=== PATIENT | male | born 1995 | race Two or more races ===

== ENCOUNTER 2021-03-12 09:28 | Emergency (ER) | payer OTHER, SELFPAY ==
--- NOTE | ~2021-03-12 | CT_ITS ---
EXAMINATION: CT ABDOMEN AND PELVIS WITHOUT CONTRAST CLINICAL INFORMATION: Left-sided lower abdominal pain COMPARISON: None TECHNIQUE: Multidetector volumetric imaging was performed from the superior aspect of the liver through the pubic symphysis. Sagittal and coronal reformatted images were obtained on the technologist's workstation. This CT examination was performed using dose optimization techniques as appropriate, variously including the following: *Automated exposure control *Adjustment of mA and/or kV according to patient size (this includes techniques or standardized protocols for targeted exams where dose is matched to indication/reason for exam; i.e. extremities or head) *Use of iterative reconstruction technique DLP: 373 mGy-cm FINDINGS: LUNG BASES: The visualized lung bases are unremarkable. LIVER, GALLBLADDER, AND BILIARY TREE: The liver is normal in size, shape, and attenuation. No focal hepatic lesion or biliary ductal dilatation is present. The gallbladder is unremarkable with no evidence of radiopaque gallstones, gallbladder wall thickening, or obvious pericholecystic inflammatory changes. PANCREAS: Unremarkable. SPLEEN: Unremarkable. ADRENAL GLANDS: Unremarkable. KIDNEYS AND URETERS: The kidneys are normal in size, shape, and attenuation. No hydronephrosis, hydroureter, or calculi seen. No perinephric stranding. BLADDER: Unremarkable. GASTROINTESTINAL TRACT: There is large amount of stool seen throughout the colon without distention. The small bowel loops are normal caliber. Appendix is not visualized. No inflammatory process seen in the abdomen. ABDOMINAL WALL: No significant hernia is appreciated. LYMPH NODES: Normal. VASCULAR: Unremarkable. PELVIC VISCERA: Unremarkable. OSSEOUS STRUCTURES: Unremarkable. CT/CT abdomen pelvis wo con IMPRESSION: Large amount of stool seen throughout the entire colon consistent with significant constipation. There is no obstruction seen. No radiopaque urolith or hydroureteronephrosis.
--- NOTE | 2021-03-12 09:50 | ED_ITS ---
HPI - Abdominal Pain General Chief Complaint: Abdominal Pain Stated Complaint: abdominal pain Time Seen by Provider: 03/12/21 09:50 Source: patient Mode of arrival: ambulatory Limitations: language barrier History of Present Illness HPI narrative: 25 y/o male with liver problem as a teenager who presents with abdominal pain and constipation for the last 5 days. He last had a BM 5 days ago after he took Milk of Magnesia. He reports ongoing abdominal pain since, mostly on the left side and lower parts of his abdomen. He is nauseated but has not vomited. No fever or chills. No blood in his stool. He had to strain and it was difficult to go. Related Data Previous Rx's Medication Instructions Recorded lactulose [Kristalose] 20 g PO BID #30 ea 03/12/21 Allergies Allergy/AdvReac Type Severity Reaction Status Date / Time Unable to Assess Allergy Unverified 03/12/21 10:29 Review of Systems Review of Systems Constitutional: No Fever, No Chills ENT/Mouth: No sore throat, No Rhinorrhea, No Swallowing Difficulty Cardiovascular: No Chest Pain, No SOB, No Orthopnea, No Edema Respiratory: No Cough, No Sputum, No Wheezing, No dyspnea Gastrointestinal: + Nausea, No Vomiting, No Diarrhea, + abdominal Pain Genitourinary: No Dysuria, No Urinary Frequency, No Hematuria Musculoskeletal: No joint pain, No Myalgias Skin: No Skin Lesions, No rash Neuro: No Weakness, No Numbness, No Dizziness, No Headache Heme/Lymph: No Bruising, No Lymphadenopathy Physical Exam Vital Signs: Vital Signs: Last Vital Signs Pulse 61 03/12/21 11:10 Resp 16 03/12/21 11:10 BP 127/87 03/12/21 11:10 Pulse Ox 99 03/12/21 11:10 Body Mass Index 21.1 Appearance: Alert. Oriented X3. No acute distress. Eyes: Pupils equal, round and reactive to light. ENT: Pharynx normal. Neck: Normal inspection. Neck supple. CVS: Normal heart rate and rhythm. Pulses normal. Respiratory: No respiratory distress. Breath sounds normal. Abdomen: Soft with left sided tenderness to deep palpation, no rebound or guarding. +BS x4. DEE normal sphincter tone, no stool in rectal vault Skin: Skin warm and dry. Normal skin color. Normal skin turgor. No rashes. Extremities: No lower extremity edema. Neuro: Oriented X 3. No motor deficit. No sensory deficit. Course Course Course Narrative: 25 y/o male presenting with left sided abdominal pain and constipation x5 days. Abdominal exam reveals some diffuse tenderness. Will get lab workup and CT scan for further evaluation. Reevaluation(s) Reevaluation #1: CT scan showing large volume stool and constipation. Labs are u nremarkable. Given 1L IVF and Mg++ citrate. Stable for discharge with laxatives and stool softeners. Encouraged GI follow up. Patient agreeable with plan. MDM - Abdominal Pain Lab Data Result diagrams: 03/12/21 11:19 03/12/21 11:19 Labs: Lab Results 03/12/21 03/12/21 03/12/21 Range/Units 11:19 11:19 11:19 WBC 4.9 (4.8-10.8) X10*3/uL RBC 4.83 (4.60-5.80) X10*6/uL Hgb 15.4 (14.0-18.0) g/dl Hct 44.4 (42-52) % MCV 91.9 (80-98) fL MCH 31.9 (27.0-33.0) pg MCHC 34.7 (31.0-36.0) g/dl RDW 11.7 (11.0-16.0) % Plt Count 193 (160-400) X10*3/uL MPV 9.1 L (9.4-12.4) fL Immature Gran % (Auto) 0.2 (0.0-0.4) % Neut % (Auto) 67.0 (45-73) % Lymph % (Auto) 25.7 (20-40) % [place] % (Auto) 6.7 (2-11) % Eos % (Auto) 0.2 (0-4) % Baso % (Auto) 0.2 (0-2) % Lymph # (Auto) 1.3 (1.2-4.9) X10*3/uL [place] # (Auto) 0.3 (0.1-1.2) X10*3/uL Eos # (Auto) 0.0 (0.0-0.4) X10*3/uL Baso # (Auto) 0.0 (0.0-0.2) X10*3/uL Abs Immat Gran (auto) 0.01 (0.00-0.03) X10*3/uL Absolute Neuts (auto) 3.3 (2.0-8.3) X10*3/uL Absolute Nucleated RBC 0.000 (0.0-0.012) X10*3/uL Nucleated RBC % (auto) 0.0 (0.0-0.2) /100WBC Hold Blue Top SEE NOTE Sodium 138 (135-145) mmol/L Potassium 3.8 (3.3-5.1) mmol/L Chloride 105 (96-108) mmol/L Carbon Dioxide 27 (22-29) mmol/L Anion Gap 10 L (12-20) BUN 14 (9-16) mg/dL Creatinine 0.95 (0.5-1.4) mg/dL Estim Creat Clear Calc 109.2 Estimated GFR > 60 Random Glucose 99 (60-115) mg/dL Calcium 9.3 (8.4-10.2) mg/dL Magnesium 2.0 (1.6-2.6) mg/dL Total Bilirubin 1.4 H (0.0-1.0) mg/dL Direct Bilirubin 0.4 (0.0-0.5) mg/dL AST 20 (5-37) U/L ALT 13 (0-40) U/L Alkaline Phosphatase 69 (39-117) U/L Total Protein 6.6 (6.5-8.0) g/dL Albumin 4.1 (3.5-5.0) g/dL Urine Color Urine Appearance Urine pH (5.0-8.0) Ur Specific [place] (1.005-1.025) Urine Protein (NEG-TRACE) MG/DL Urine Glucose (UA) (NEG) MG/DL Urine Ketones (NEG) MG/DL Urine Blood (NEG) Urine Nitrite (NEG) Ur Leukocyte Esterase (NEG) 03/12/21 Range/Units 11:19 WBC (4.8-10.8) X10*3/uL RBC (4.60-5.80) X10*6/uL Hgb (14.0-18.0) g/dl Hct (42-52) % MCV (80-98) fL MCH (27.0-33.0) pg MCHC (31.0-36.0) g/dl RDW (11.0-16.0) % Plt Count (160-400) X10*3/uL MPV (9.4-12.4) fL Immature Gran % (Auto) (0.0-0.4) % Neut % (Auto) (45-73) % Lymph % (Auto) (20-40) % [place] % (Auto) (2-11) % Eos % (Auto) (0-4) % Baso % (Auto) (0-2) % Lymph # (Auto) (1.2-4.9) X10*3/uL [place] # (Auto) (0.1-1.2) X10*3/uL Eos # (Auto) (0.0-0.4) X10*3/uL Baso # (Auto) (0.0-0.2) X10*3/uL Abs Immat Gran (auto) (0.00-0.03) X10*3/uL Absolute Neuts (auto) (2.0-8.3) X10*3/uL Absolute Nucleated RBC (0.0-0.012) X10*3/uL Nucleated RBC % (auto) (0.0-0.2) /100WBC Hold Blue Top Sodium (135-145) mmol/L Potassium (3.3-5.1) mmol/L Chloride (96-108) mmol/L Carbon Dioxide (22-29) mmol/L Anion Gap (12-20) BUN (9-16) mg/dL Creatinine (0.5-1.4) mg/dL Estim Creat Clear Calc Estimated GFR Random Glucose (60-115) mg/dL Calcium (8.4-10.2) mg/dL Magnesium (1.6-2.6) mg/dL Total Bilirubin (0.0-1.0) mg/dL Direct Bilirubin (0.0-0.5) mg/dL AST (5-37) U/L ALT (0-40) U/L Alkaline Phosphatase (39-117) U/L Total Protein (6.5-8.0) g/dL Albumin (3.5-5.0) g/dL Urine Color YELLOW Urine Appearance CLEAR Urine pH 6.0 (5.0-8.0) Ur Specific [place] 1.020 (1.005-1.025) Urine Protein NEG (NEG-TRACE) MG/DL Urine Glucose (UA) NEG (NEG) MG/DL Urine Ketones NEG (NEG) MG/DL Urine Blood NEG (NEG) Urine Nitrite NEG (NEG) Ur Leukocyte Esterase NEG (NEG) Critical Care Time Critical Care Time Critical Care Time: No Discharge Plan Discharge Clinical Impression: Constipation Qualifiers: Constipation type: unspecified constipation type Qualified Code(s): K59.00 - Constipation, unspecified Patient Disposition: Home, Self-Care Instructions: Constipation (ED), High Fiber Diet (ED) Additional Instructions: Your CT scan showed constipation. Your lab workup was unremarkable. Increase your water intake. Recommend daily Miralax and Colace stool softeners. Take as prescribed. Continue milk of magnesia as needed. Follow up with GI provider. Follow up with your regular doctor. If you have worsening pain or develop vomiting or any other concerning symptoms come back to the ER for further evaluation. Prescriptions: New lactulose [Kristalose] 10 gram packet 20 g PO BID Qty: 30 RF: 0 Referrals: Familia Ramsay MD [Physician] - 1 week (severe constipation) Stand Alone Forms: Work/School Release Print Language: Urdu [facility] Social History Social History Patient Tobacco Use Status: Never used Tobacco Advance Directives: Yes Advance Directives Information Provided: No Advance Directives on File: No
[2021-03-12 10:27] VITALS: BP 126/58; PULSE 58; RESP 18; O2SAT 100; BMI 21.1
[2021-03-12 11:10] VITALS: BP 127/87; PULSE 61; RESP 16; O2SAT 99
[2021-03-12] MEDS: 0.9 % Sodium Chloride 1,000 ML 999 ML IVCONT (11:21)
[2021-03-12] MEDS: Magnesium Citrate 300 ML SOLUTION PO (11:25)
[2021-03-12 11:27] LABS: MANUAL DIFF FLAG NO
[2021-03-12 11:29] LABS: Basophils Percent Auto 0.2 % (0-2); Eosinophils Percent Auto 0.2 % (0-4); Hematocrit 44.4 % (42-52); Hemoglobin 15.4 g/dl (14.0-18.0); Imm Gran Abs Auto 0.01 X10*3/uL (0.00-0.03); Imm Gran Pct Auto 0.2 % (0.0-0.4); Lymphocytes Absolute Auto 1.3 X10*3/uL (1.2-4.9); Lymphocytes Percent Auto 25.7 % (20-40); Mean Corpuscular HGB Conc 34.7 g/dl (31.0-36.0); Mean Corpuscular Hemoglobin 31.9 pg (27.0-33.0); Mean Corpuscular Volume 91.9 fL (80-98); Mean Platelet Volume 9.1 fL (9.4-12.4); Monocytes Absolute Auto 0.3 X10*3/uL (0.1-1.2); Monocytes Percent Auto 6.7 % (2-11); Neutrophils Absolute Auto 3.3 X10*3/uL (2.0-8.3); Platelet Count 193 X10*3/uL (160-400); Red Blood Count 4.83 X10*6/uL (4.60-5.80); Red Cell Distribution Width 11.7 % (11.0-16.0); White Blood Count 4.9 X10*3/uL (4.8-10.8)
[2021-03-12 11:30] LABS: Glucose Urine UA NEG (NEG); Leukocyte Esterase Urine NEG (NEG); Nitrite Urine NEG (NEG); Urine Blood NEG (NEG); Urine Ketones NEG (NEG); Urine Protein NEG (NEG-TRACE)
[2021-03-12 11:31] LABS: Appearance Urine CLEAR; Color Urine YELLOW
[2021-03-12 11:53] LABS: Alanine Aminotransferase 13 U/L (0-40); Albumin Level 4.1 g/dL (3.5-5.0); Alkaline Phosphatase 69 U/L (39-117); Anion Gap 10 (12-20); Aspartate Amino Transferase 20 U/L (5-37); Bilirubin Direct 0.4 mg/dL (0.0-0.5); Bilirubin Total 1.4 mg/dL (0.0-1.0); Blood Urea Nitrogen 14 mg/dL (9-16); Calcium 9.3 mg/dL (8.4-10.2); Carbon Dioxide 27 mmol/L (22-29); Chloride 105 mmol/L (96-108); Creatinine Clr Calc Pharmacy 109.2; Estimated Glomerular Filt Rate > 60; Glucose Random 99 mg/dL (60-115); Potassium 3.8 mmol/L (3.3-5.1); Sodium 138 mmol/L (135-145); Total Protein 6.6 g/dL (6.5-8.0)
== END 2021-03-12 13:12 | disposition home or self-care (01) ==
PROVIDERS: Physician Assistant; Emergency Provider Emergency Medicine
DX: K59.00 Constipation, unspecified (principal); R10.9 Unspecified abdominal pain
CPT/HCPCS: 36415; 74176; 80048; 80076; 81003; 83735; 85025; 96360; 99284

== ENCOUNTER 2022-04-06 20:54 | Emergency (ER) | payer MEDICAID, SELFPAY ==
--- NOTE | ~2022-04-06 | CT_ITS ---
EXAMINATION: CT ANGIOGRAM BRAIN, HEAD CLINICAL INFORMATION: Suspicion of aneurysm contrast head CT. COMPARISON: Head CT from today TECHNIQUE: Test bolus sequences followed by intravenous administration of 75 mL of Omnipaque 350 intravenous contrast. Helical imaging was performed in the axial plane from the skull base to the vertex. Delayed postcontrast imaging of the head was also performed. The data was processed at the computer engineering technologist workstation for generation of MIP sequences. Three-dimensional volume rendered reformatted images were also generated at an offline 3-D workstation. The degree of stenosis determined by NASCET criteria. This CT examination was performed using dose optimization techniques as appropriate, variously including the following: *Automated exposure control *Adjustment of mA and/or kV according to patient size (this includes techniques or standardized protocols for targeted exams where dose is matched to indication/reason for exam; i.e. extremities or head) *Use of iterative reconstruction technique DLP: 1708 mGy-cm FINDINGS: CT HEAD: There is no evidence of acute intracranial hemorrhage or territorial infarction. No abnormal mass effect or midline shift is seen. Salazar to white matter differentiation is well preserved. No extra-axial fluid collections are identified. No suspicious leptomeningeal or parenchymal enhancement on the post-contrast images. No hydrocephalus. No significant volume loss. There is no abnormal attenuation within the brain parenchyma. Posttraumatic appearance of the right orbit. This is fully described on the recent prior CT. Layering fluid in the right maxillary sinus.. The mastoid air cells and visualized portions of the paranasal sinuses are otherwise well aerated. CTA HEAD: There is a right-sided aneurysm at the origin of the right middle cerebral artery. This measures 0.5 x 0.6 x 0.7 cm. Of note, the A1 segment of the right anterior cerebral artery is absent. The intradural portion of the vertebral arteries are of normal caliber. The basilar, superior cerebellar, and posterior communicating arteries are patent. The posterior, middle, and anterior cerebral arteries are otherwise of normal caliber without evidence of significant luminal irregularity. CT/CT angio head IMPRESSION: 0.7 cm aneurysm at the origin of the right middle cerebral artery. Posttraumatic appearance of the right orbit.
--- NOTE | ~2022-04-06 | CT_ITS ---
EXAMINATION: NONCONTRAST HEAD CT NONCONTRAST MAXILLOFACIAL CT INDICATION INFORMATION: Head trauma and right orbital trauma. Softball to face. COMPARISON: None TECHNIQUE: Separate noncontrast CT examinations of the head and maxillofacial bones were performed. Coronal and sagittal images were created for each examination at the technologist workstation. This CT examination was performed using dose optimization techniques as appropriate, variously including the following: *Automated exposure control *Adjustment of mA and/or kV according to patient size (this includes techniques or standardized protocols for targeted exams where dose is matched to indication/reason for exam; i.e. extremities or head) *Use of iterative reconstruction technique DLP: 914 mGy-cm FINDINGS: HEAD: Rounded hyperdense focus at the expected junction of the right supraclinoid ICA and right M1 MCA segment projecting superiorly suspicious for an intracranial aneurysm that measures approximately 0.8 x 0.7 x 0.7 cm in size, see adams images. No intra or extra-axial hemorrhage, fluid collection, or other mass. No midline shift or herniation. Basal cisterns are patent. The means-white matter differentiation is maintained. No territorial encephalomalacia. No hydrocephalus. No significant volume loss. There is no abnormal attenuation within the brain parenchyma. No acute soft tissue abnormality. No calvarial fracture. The mastoid air cells are well aerated. MAXILLOFACIAL: Comminuted fracture of the orbital floor with up to 0.9 cm depression of orbital floor fragments and herniation of a small amount of extraconal fat through the bony defect. The inferior rectus muscle also bulges inferiorly into the defect. Question impingement/entrapment of the inferior rectus muscle at the posterior fracture margin on coronal image 13. There is gas from the maxillary sinus extending into the extraconal fat along the inferior lateral aspect of the orbit. Medial, lateral and superior orbital aguirre appear intact. No other acute facial bone fracture. Small air-fluid level in the right maxillary antrum compatible small volume hemosinus. Mild mucosal thickening of right ethmoid air cells. The orbits demonstrate a normal appearance bilaterally. The globes are intact. No evidence of retrobulbar hemorrhage. Right periorbital soft tissue swelling. CT/CT facial bones wo con IMPRESSION: 1. Unexpected findin.8 x 0.7 x 0.7 cm rounded hyperdense focus in the region of the distal supraclinoid right ICA at the junction with the proximal M1 segment projecting superiorly suspicious for an intracranial aneurysm. Recommend CTA of the head for further evaluation. 2. No intracranial hemorrhage or calvarial fracture identified. 3. Comminuted depressed right orbital floor fracture with up to 0.9 cm depression of inferior orbital floor bone fragments and possible impingement/entrapment of the posterior right inferior rectus muscle. 4. Intact appearance of the globe and retro-orbital structures.
[2022-04-06 21:46] VITALS: PULSE 99; RESP 19; TEMP 37.1; O2SAT 99; BMI 24.0
--- NOTE | 2022-04-06 21:58 | ED_ITS ---
HPI - Eye Problem General Chief complaint: Eye Problems Stated complaint: hit in eye with softball Time Seen by Provider: 04/06/22 21:55 Source: patient Mode of arrival: ambulatory Limitations: language barrier History of Present Illness HPI Narrative: 26-year-old male presents with right-sided eye pain and swelling after being hit in the face with a softball today. Patient reports pressure to the right eye, had a bloody nose, has a minor headache, some dizziness, and states that his vision is a little bit blurry. He does not report loss of balance, nausea, vomiting, fevers or chills chief complaint: eye pain and eye injury Onset (ago): hour(s) (Within the hour of arrival) Onset description: sudden Duration: constant Location: right eye Eye Symptoms: redness and pain Place: street/outdoors Mechanism: direct trauma Severity: severe Severity scale (1-10): 8 If Pain, Quality: aching and throbbing Associated symptoms: headache and other (Dizziness) Treatments Prior to Arrival: none Related Data Patient tetanus UTD: No Previous Rx's Medication Instructions Recorded lactulose 10 gram oral packet 20 g PO BID #30 ea 03/12/21 (Kristalose) Allergies Allergy/AdvReac Type Severity Reaction Status Date / Time No Known Allergies Allergy Verified 04/06/22 22:39 Review of Systems Review of Systems: Constitutional: No Fever, No Chills ENT/Mouth: No Ear Pain, No Hoarseness, No sore throat Eyes: Positive right eye Eye Pain, positive right eye lid Swelling, positive right eye Redness, No Foreign Body Cardiovascular: No Chest Pain, No SOB Respiratory: No Cough, No Dyspnea Gastrointestinal: No Nausea, No Vomiting, No Diarrhea, No abdominal Pain Genitourinary: No Dysuria, No Hematuria Musculoskeletal: positive right orbital pain, No Myalgias, No Joint Swelling Skin: Positive right upper eyelid laceration, positive right lower eyelid abrasion, No rash Neuro: No Weakness, No Numbness, No Paresthesias, No Loss of Consciousness, No Dizziness, No Headache Psych: No Anxiety/Panic, No Depression Heme/Lymph: no easy bruising, no Lymphadenopathy Endocrine: No Polyuria, No Polydipsia Yes all other systems are reviewed and are negative [facility] Past Medical History Attestation statement: The following information was validated with the patient. Source: old records reviewed Social History Social History Patient Tobacco Use Status: Never used Tobacco Advance Directives: No Advance Directives Information Provided: No Physical Exam Vital Signs: Vital Signs: Last Vital Signs Temp 98.7 F 04/06/22 21:46 Pulse 89 04/07/22 00:58 Resp 16 04/07/22 01:00 BP 153/87 H 04/07/22 00:58 Pulse Ox 99 04/07/22 00:58 O2 Del Method 04/07/22 00:58 BMI result Body Mass Index 24.0 Appearance: Alert. Oriented X3. Moderate distress. Eyes: Pupils equal, round and reactive to light. Subconjunctival hematoma noted to the right eye from the 6 o'clock to 11 o'clock position. No chemosis or globe rupture noted. No hyphema noted. EOMI. Swelling noted to the upper and lower lids with 0.5 cm laceration to the upper lid, and 0.5 cm abrasion to the lower lid. ENT: Pharynx normal. Tympanic membranes bilaterally intact. No mastoid tenderness noted. Neck: Normal inspection. Neck supple. No vertebral tenderness noted. No vertebral step-offs. CVS: Normal heart rate and rhythm. Pulses normal. Respiratory: No respiratory distress. Breath sounds normal. Abdomen: Soft and nontender. Skin: Skin warm and dry. Normal skin color. Normal skin turgor. Extremities: No lower extremity edema. Gait well-balanced well coordinated. Neuro: No motor deficit. No sensory deficit. Cranial nerves 2-12 intact. Course Course Course Narrative: 26-year-old male presents with right orbital injury after being hit in the face with a line drive softball. Patient does not report any loss of vision but has significant pain around the eye. He also reports some dizziness, however has had intermittent dizziness over the past few months. He has had a lab work up by his primary care physician for this dizziness with negative findings. Eye exam indicates subconjunctival hematoma to the right eye from the 6 o'clock to 11 o'clock position. Has pain on extraocular movement, to the right lateral rectus and inferior rectus muscles. No nystagmus noted. Laceration prepped and draped in sterile fashion. Irrigated with copious amounts of saline. Please refer to procedure note for full details. Patient tolerated procedure well. 23:20 CT scan has some significant findings. Comminuted depressed right orbital floor fracture with 0.9 cm depression of the inferior orbital floor bone fragments and possible impingement entrapment of the posterior right inferior rectus muscle. Also noted an unexpected finding of a 0.8 x 0.7 x 0.7 cm rounded hypodense focus in the region of the distal supraclinoid right ICA at the [place] ction the proximal M1 segment projecting superiorly suspicious for intracranial aneurysm. Will order CTA at this time. I did discuss all of these findings with the patient in detail utilizing scientific software developer. scientific software developer has been utilized for all correspondence with this patient. Patient did verbalize understanding of and agrees with plan. He does understand that he may need to be transferred to a level 1 trauma center. 00:45 CTA indicates aneurysm measuring 0.5 x 0.6 x 0.7 cm of the right middle cerebral artery. 00:59 discussion with [facility] trauma, patient accepted by Dr. Pandey. MDM - Eye Problem MDM Narrative Medical decision making narrative: Orbital fracture Differential Diagnosis Differential diagnosis: Likely corneal abrasion, hyphema, subconjunctival hemorrhage and ruptured globe Medical Records Attestation: I reviewed the patient's medical records. Lab Data Attestation: I reviewed the patient's lab results. Result diagrams: 04/06/22 23:37 04/06/22 23:37 Labs: Lab Results 04/06/22 04/06/22 04/06/22 Range/Units 23:37 23:37 23:37 WBC 10.0 (4.8-10.8) X10*3/uL RBC 5.07 (4.60-5.80) X10*6/uL Hgb 16.0 (14.0-18.0) g/dl Hct 46.5 (42.0-52.0) % MCV 91.7 (80.0-98.0) fL MCH 31.6 (27.0-33.0) pg MCHC 34.4 (31.0-36.0) g/dl RDW 12.7 (11.0-16.0) % Plt Count 243 (160-400) X10*3/uL MPV 8.7 L (9.4-12.4) fL Immature Gran % (Auto) 0.2 (0.0-0.4) % Neut % (Auto) 76.3 H (45-73) % Lymph % (Auto) 16.8 L (20-40) % [place] % (Auto) 6.3 (2-11) % Eos % (Auto) 0.2 (0-4) % Baso % (Auto) 0.2 (0-2) % Lymph # (Auto) 1.7 (1.2-4.9) X10*3/uL [place] # (Auto) 0.6 (0.1-1.2) X10*3/uL Eos # (Auto) 0.0 (0.0-0.4) X10*3/uL Baso # (Auto) 0.0 (0.0-0.2) X10*3/uL Abs Immat Gran (auto) 0.02 (0.00-0.03) X10*3/uL Absolute Neuts (auto) 7.6 (2.0-8.3) x10*3/uL Absolute Nucleated RBC 0.000 (0.0-0.012) X10*3/uL Nucleated RBC % (auto) 0.0 (0.0-0.2) /100WBC Sodium 138 (135-145) mmol/L Potassium 3.8 (3.3-5.1) mmol/L Chloride 102 (96-108) mmol/L Carbon Dioxide 23 (22-29) mmol/L Anion Gap 17 (12-20) BUN 11 (9-16) mg/dL Creatinine 1.00 (0.5-1.4) mg/dL Estim Creat Clear Calc 108.3 Estimated GFR > 60 Random Glucose 139 H D (60-115) mg/dL Calcium 10.0 D (8.4-10.2) mg/dL COVID-19 (ALEX) Negative (Negative) COVID-19 Clin Com See Note Imaging Data CT scan - head: Attestation: I personally reviewed and interpreted this imaging study as follows: Radiologist's impression: FINDINGS: HEAD: Rounded hyperdense focus at the expected junction of the right supraclinoid ICA and right M1 MCA segment projecting superiorly suspicious for an intracranial aneurysm that measures approximately 0.8 x 0.7 x 0.7 cm in size, see adams images. No intra or extra-axial hemorrhage, fluid collection, or other mass. No midline shift or herniation. Basal cisterns are patent. The salazar-white matter differentiation is maintained. No territorial encephalomalacia. No hydrocephalus. No significant volume loss. There is no abnormal attenuation within the brain parenchyma. No acute soft tissue abnormality. No calvarial fracture. The mastoid air cells are well aerated. MAXILLOFACIAL: Comminuted fracture of the orbital floor with up to 0.9 cm depression of orbital floor fragments and herniation of a small amount of extraconal fat through the bony defect. The inferior rectus muscle also bulges inferiorly into the defect. Question impingement/entrapment of the inferior rectus muscle at the posterior fracture margin on coronal image 13. There is gas from the maxillary sinus extending into the extraconal fat along the inferior lateral aspect of the orbit. Medial, lateral and superior orbital aguirre appear intact. No other acute facial bone fracture. Small air-fluid level in the right maxillary antrum compatible small volume hemosinus. Mild mucosal thickening of right ethmoid air cells. The orbits demonstrate a normal appearance bilaterally. The globes are intact. No evidence of retrobulbar hemorrhage. Right periorbital soft tissue swelling. CT/CT facial bones wo con IMPRESSION: ? 1. Unexpected findin.8 x 0.7 x 0.7 cm rounded hyperdense focus in the region of the distal supraclinoid right ICA at the junction with the proximal M1 segment projecting superiorly suspicious for an intracranial aneurysm. Recommend CTA of the head for further evaluation. 2. No intracranial hemorrhage or calvarial fracture identified. 3. Comminuted depressed right orbital floor fracture with up to 0.9 cm depression of inferior orbital floor bone fragments and possible impingement/entrapment of the posterior right inferior rectus muscle. 4. Intact appearance of the globe and retro-orbital structures. CTA head: Attestation: I personally reviewed and interpreted this imaging study as follows: Radiologist's impression: FINDINGS: CT HEAD: There is no evidence of acute intracranial hemorrhage or territorial infarction. No abnormal mass effect or midline shift is seen. Salazar to white matter differentiation is well preserved. No extra-axial fluid collections are identified. No suspicious leptomeningeal or parenchymal enhancement on the post-contrast images. No hydrocephalus. No significant volume loss. There is no abnormal attenuation within the brain parenchyma. Posttraumatic appearance of the right orbit. This is fully described on the recent prior CT. Layering fluid in the right maxillary sinus.. The mastoid air cells and visualized portions of the paranasal sinuses are otherwise well aerated. CTA HEAD: There is a right-sided aneurysm at the origin of the right middle cerebral artery. This measures 0.5 x 0.6 x 0.7 cm. Of note, the A1 segment of the right anterior cerebral artery is absent. The intradural portion of the vertebral arteries are of normal caliber. The basilar, superior cerebellar, and posterior communicating arteries are patent. The posterior, middle, and anterior cerebral arteries are otherwise of normal caliber without evidence of significant luminal irregularity. ? CT/CT angio head IMPRESSION: 0.7 cm aneurysm at the origin of the right middle cerebral artery.? ? Posttraumatic appearance of the right orbit. Procedures Laceration Laceration 1: Site: face Side (If applicable): right Size (cm): 0.5 Description: linear Depth: simple, single layer Local Anesthetic: lidocaine 1% Amount of anesthesia used (mL): 2 Pre-repair: wound explored, irrigated extensively and deep structures intact Skin layer closed with: nylon Size (cm): 6-0 Number of sutures: 3 Technique: simple, interrupted Discharge Plan Discharge Clinical Impression: Orbital floor (blow-out) closed fracture, Aneurysm of middle cerebral artery, Facial laceration Patient Disposition: er Acute Care Hospital Transfer Details: [facility], Dr. Pandey Prescriptions: No Action lactulose [Kristalose] 10 gram packet 20 g PO BID Qty: 30 0RF Interventions: Acute Care Transfer Worksheet (ED) Last Done: 04/07/22 01:56 Discharge Date/Time: 04/07/22 01:45
[2022-04-06] MEDS: Lidocaine HCl 1 % MPF 5 ML VIAL SUBCUT (22:41)
[2022-04-06] MEDS: Diphth,Pertus(ACell),Tet Adult 0.5 ML SYRINGE IM (22:41)
[2022-04-06 23:43] LABS: MANUAL DIFF FLAG NO
[2022-04-06 23:44] LABS: Basophils Percent Auto 0.2 % (0-2); Eosinophils Percent Auto 0.2 % (0-4); Hematocrit 46.5 % (42.0-52.0); Imm Gran Abs Auto 0.02 X10*3/uL (0.00-0.03); Imm Gran Pct Auto 0.2 % (0.0-0.4); Lymphocytes Absolute Auto 1.7 X10*3/uL (1.2-4.9); Lymphocytes Percent Auto 16.8 % (20-40); Mean Corpuscular HGB Conc 34.4 g/dl (31.0-36.0); Mean Corpuscular Hemoglobin 31.6 pg (27.0-33.0); Mean Corpuscular Volume 91.7 fL (80.0-98.0); Mean Platelet Volume 8.7 fL (9.4-12.4); Monocytes Absolute Auto 0.6 X10*3/uL (0.1-1.2); Monocytes Percent Auto 6.3 % (2-11); Neutrophils Absolute Auto 7.6 x10*3/uL (2.0-8.3); Neutrophils Percent Auto 76.3 % (45-73); Platelet Count 243 X10*3/uL (160-400); Red Blood Count 5.07 X10*6/uL (4.60-5.80); Red Cell Distribution Width 12.7 % (11.0-16.0)
[2022-04-06] MEDS: iohexoL 350 MG/ML 100 ML INFUS..BTL 75 ML IV (23:52)
[2022-04-06 23:59] LABS: COVID-19 Test Negative (Negative)
[2022-04-07 00:02] LABS: Anion Gap 17 (12-20); Blood Urea Nitrogen 11 mg/dL (9-16); Carbon Dioxide 23 mmol/L (22-29); Chloride 102 mmol/L (96-108); Creatinine Clr Calc Pharmacy 108.3; Estimated Glomerular Filt Rate > 60; Glucose Random 139 mg/dL (60-115); Potassium 3.8 mmol/L (3.3-5.1); Sodium 138 mmol/L (135-145)
[2022-04-07] MEDS: 0.9 % Sodium Chloride 1,000 ML 999 ML IVCONT (00:21)
[2022-04-07] MEDS: ondansetron HCL 4 MG/2 ML VIAL IVPUSH (00:21)
[2022-04-07] MEDS: LORazepam 2 MG/ML VIAL 0.5 MG IVPUSH (00:21)
[2022-04-07 00:22] VITALS: RESP 16
[2022-04-07] MEDS: Morphine Sulfate 4 MG/ML CARTRIDGE IVPUSH ×2 (00:22→01:00)
[2022-04-07 00:58] VITALS: BP 153/87; PULSE 89; RESP 16; O2SAT 99
[2022-04-07 01:00] VITALS: RESP 16
--- NOTE | 2022-04-07 01:34 | PC.NURSE ---
This US/PCT called [facility] transfer center at 0037 per DANYEL Wills. Received a call back at 0055, accepted patient to the trauma ER. Called [facility] at 0102 for a bls transfer per Elma. [facility] arrived at 0129.
--- NOTE | 2022-04-07 01:55 | PC.NURSE ---
This RN attempted to call [facility] twice for nurse to nurse report. Phone rang continuously with no response for both calls. EMS informed that nurse to nurse could not be completed.
== END 2022-04-07 01:45 | disposition short-term general hospital (02) ==
PROVIDERS: Nurse Practitioner Family; Emergency Provider Emergency Medicine
DX: S02.31XA Fracture of orbital floor, right side, initial encounter for closed fracture (principal); S01.81XA Laceration without foreign body of other part of head, initial encounter; S05.01XA Injury of conjunctiva and corneal abrasion without foreign body, right eye, initial encounter; R42 Dizziness and giddiness; R51.9 Headache, unspecified; I67.1 Cerebral aneurysm, nonruptured; Y29.XXXA Contact with blunt object, undetermined intent, initial encounter; Y93.64 Activity, baseball; Y92.320 Baseball field as the place of occurrence of the external cause; Y99.9 Unspecified external cause status; Z20.822 Contact with and (suspected) exposure to COVID-19; Z79.899 Other long term (current) drug therapy
CPT/HCPCS: 12011; 70450; 70486; 70496; 80048; 85025; 87635; 90471; 90715; 96361; 96374; 96375; 96376; 99285; J2060; J2270; J2405; Q9967

== ENCOUNTER 2022-04-17 11:01 | Emergency (ER) | payer MEDICAID, SELFPAY ==
[2022-04-17 11:18] VITALS: BP 120/61; PULSE 64; RESP 18; TEMP 37; O2SAT 98; BMI 22.8
--- NOTE | 2022-04-17 12:10 | ED_ITS ---
HPI - General Adult General Chief complaint: Skin/Abscess/Foreign Body Stated complaint: stiches removal Time Seen by Provider: 04/17/22 12:08 Source: patient Mode of arrival: ambulatory History of Present Illness HPI narrative: 26-year-old male with a past medical history of orbital blowout fracture, aneurysm of the middle cerebral artery, and facial laceration s/p being hit in the face with a softball on 04/06/2022 presenting to the ED for suture removal. Patient was evaluated in our ED after initial incident and transferred via level 1 trauma to [facility], admits was discharged on Thursday. Is scheduled for outpatient surgery at the end of May for his aneurysm. Otherwise denies any complaints at present. Denies headache, vision change/loss, drainage from area, fever Onset (ago): day(s) Related Data Previous Rx's Medication Instructions Recorded lactulose 10 gram oral packet 20 g PO BID #30 ea 03/12/21 (Kristalose) Allergies Allergy/AdvReac Type Severity Reaction Status Date / Time No Known Allergies Allergy Verified 04/06/22 22:39 Review of Systems Review of Systems: Constitutional: No Fever, No Chills, No Fatigue, No Malaise ENT/Mouth: No Ear Pain, No Nasal Congestion, No sore throat, No Rhinorrhea, No Swallowing Difficulty Eyes: No Eye Pain, No Swelling, No Redness, No Vision Changes Cardiovascular: No Chest Pain, No SOB, No Edema, No Palpitations Respiratory: No Cough, No Sputum, No Dyspnea Gastrointestinal: No Nausea, No Vomiting, No Diarrhea, No Constipation, No Abdominal pain Genitourinary: No Dysuria, No Urinary Frequency, No Hematuria Musculoskeletal: No joint pain, No Myalgias, No Joint Swelling Skin: + Skin Lesions, No rash Neuro: No Weakness, No Numbness, No Paresthesias, No Loss of Consciousness, No Dizziness, No Headache Yes all other systems are reviewed and are negative [facility] Past Medical History Attestation statement: The following information was validated with the patient. Social History Social History Patient Tobacco Use Status: Never used Tobacco Advance Directives: No Advance Directives Information Provided: No Physical Exam ED Vital Signs: Vital Signs - 24 hr 04/17/22 11:18 Temperature 98.6 F Pulse Rate 64 Respiratory Rate 18 Blood Pressure 120/61 Pulse Oximetry 98 Oxygen Delivery Method Room Air BMI result Body Mass Index 22.8 Const General: cooperative, healthy appearing and no acute distress Orientation/consciousness: patient oriented x3 Limitations: no limitations HENMT Head: Yes normal to inspection and Yes atraumatic Ears: hearing grossly normal bilaterally General nose exam: Normal external nose present Face and sinus: Yes normal facial exam Eyes Other: + right subconjunctival hemorrhage (old) General: appearance normal, both eyes and all related structures EOM: EOMs intact bilaterally and no movement deficit Direct Ophthalmoscopy: normal light reflex and no photophobia Neck Neck: Yes normal visual inspection and Yes no meningeal signs Resp Effort & Inspection: normal respiratory effort and no respiratory distress Cardio Rate: regular rate Heart sounds: S1 normal heart sound present and S2 normal heart sound present Skin Other: + healing laceration to forehead with 3 sutures intact Rashes: no rashes Neuro General: patient oriented x3, tone normal and no meningeal signs Gait exam (Neuro): Normal gait present Extrem General: Yes normal to inspection Procedures Procedure Narrative Procedure Narrative: Suture removal 3 sutures removed from forehead without complication Medical Decision Making MDM Narrative Medical decision making narrative: 26-year-old male with a past medical history of orbital blowout fracture, aneurysm of the middle cerebral artery, and facial laceration s/p being hit in the face with a softball on 04/06/2022 presenting to the ED for suture removal. On exam vital signs stable, NAD/nontoxic appearing, will remove sutures. Appear uncomplicated Medical Records Medical records reviewed: Yes I reviewed the patient's medical records. Lab Data Lab results reviewed: Yes I reviewed the patient's lab results. Discharge Plan Discharge Clinical Impression: Visit for suture removal Patient Disposition: Home, Self-Care Instructions: Stitches Removal (ED) Additional Instructions: Your sutures were removed today in the ED. Keep area clean. Avoid the sun as will make scarring worse. You should apply anti scar cream which is [id number] at [facility] or [facility]. Please follow-up with your doctor If symptoms persist or worsen return to the emergency department Le quitaron las suturas hoy en el servicio de urgencias. Mantenga el ?cordell limpia. Evite el maye ya que empeorar? las cicatrices. Debe aplicar gary crema anticicatrices que se vende sin receta en [facility] o [facility]. Por favor, silvia un seguimiento con harrison m?dico. Si los s?ntomas persisten o empeoran, regrese al servicio de urgencias. Prescriptions: No [facility] lactulose [Kristalose] 10 gram packet 20 g PO BID Qty: 30 0RF Referrals: Aladdin,[facility] [Primary Care Provider] - Interventions: ED Discharge Assessment Last Done: 04/17/22 12:36 Discharge Date/Time: 04/17/22 12:36 Print Language: Pashto
== END 2022-04-17 12:36 | disposition home or self-care (01) ==
PROVIDERS: Emergency Provider Emergency Medicine
DX: Z48.02 Encounter for removal of sutures (principal)
CPT/HCPCS: 99283

== ENCOUNTER 2022-09-17 08:59 | Outpatient (REF) | payer MEDICAID, SELFPAY ==
--- NOTE | ~2022-09-17 | US_ITS ---
EXAMINATION: US ABDOMEN COMPLETE CLINICAL INFORMATION: Abdominal pain. COMPARISON: CT abdomen and pelvis 03/12/2021. TECHNIQUE: Real-time imaging of the abdominal viscera. FINDINGS: PANCREAS: Normal. ABDOMINAL AORTA: The proximal, mid, and distal segments are normal in caliber. INFERIOR VENA CAVA: Visualized portions are normal. LIVER: Normal. The liver is normal in size. The liver contour is normal. Parenchymal echogenicity is normal. No focal hepatic lesion. There is no intrahepatic biliary duct dilatation seen. GALLBLADDER: Normal. The gallbladder is physiologically distended without evidence of stones, sludge, polyps, wall thickening or pericholecystic fluid. COMMON BILE DUCT: Normal in caliber measuring 0.1 cm in diameter. RIGHT KIDNEY: Normal. No hydronephrosis. No renal calculi or focal parenchymal lesions. The kidney measures 9.5 cm in maximum dimension. LEFT KIDNEY: Normal. No hydronephrosis. No renal calculi or focal parenchymal lesions. The kidney measures 9.8 cm in maximum dimension. SPLEEN: Normal. The spleen measures 11.5 cm in maximum dimension. FREE FLUID: None. US/US abdomen complete IMPRESSION: Unremarkable abdominal ultrasound.
== END 2022-09-17 09:00 | disposition home or self-care (01) ==
LOC: HO.HMGCX 08:59
PROVIDERS: PCP Registered Nurse; Visit Provider Registered Nurse
DX: R10.84 Generalized abdominal pain (principal)
CPT/HCPCS: 76700

== ENCOUNTER 2025-02-16 12:02 | Outpatient (REF) | payer MEDICAID, SELFPAY ==
--- NOTE | ~2025-02-16 | XR_ITS ---
EXAMINATION: XR RIBS, RIGHT CLINICAL INFORMATION: right rib pain, s/p fall COMPARISON: None available. TECHNIQUE: 3 views of the right ribs were obtained. FINDINGS: Lungs are clear. No consolidation, pneumothorax, or pleural effusion. The cardiomediastinal silhouette and pulmonary vasculature are normal. Osseous structures are unremarkable. Ribs are intact. No fractures are identified. XR/XR ribs RT min 3V w CXR1V IMPRESSION: 1. Normal chest. No acute rib findings. Electronically signed by: Aung Chapman MD 02/16/2025 01:04 PM EDT
--- OUTSIDE RECORDS SUMMARY | 2025-02-16 13:00 | XMS_ITS | Clinical Summary ---
Author Organization [employer] Address [address] [place] [address] Care Team Providers Care Test Facility Engineer Name Role Phone Shabnam Wan HYPERION ADMINISTRATOR Primary Care Provider [phone] Allergies No known active allergies Medications Simethicone Ultra Strength 180 MG capsule TAKE 1 CAPSULE BY MOUTH FOUR TIMES DAILY NEEDED FOR GAS 08/26/20 22 Active sodium chloride (Deep Sea Nasal Palmetto) 0.65 % nasal sprayIndicatio ns:Viral syndrome USE 2 SPRAYS IN EACH NOSTRIL EVERY DAY NEEDED FOR NASAL CONGESTION 44 mL 3 01/13/20 24 Active fluticasone (Flonase) 50 MCG/ACT nasal spray USE 1-2 SPRAYS IN EACH NOSTRIL EVERY DAY NEEDED 48 g 1 01/27/20 25 Active famotidine (Pepcid) 20 MG tabletIndicati ons:Gastritis without bleeding, unspecified chronicity, unspecified gastritis type Take 1 tablet twice daily as needed for acid reflux 60 tablet 01/27/20 25 Active Acetaminophen Extra Strength 500 MG tablet Take 1 or 2 tablets every 8 hours as needed for pain 30 tablet 02/17/20 25 Active ibuprofen 800 MG tablet Take 1 tablet (800 mg) by mouth every 8 (eight) hours if needed for mild pain, fever or moderate pain. 30 tablet 02/17/20 25 Active lidocaine (Lidoderm) 5 % patch Apply 1 patch topically Once per day. Remove & discard patch within 12 hours or as directed by MD. 30 patch 11 02/17/20 25 Active Acetaminophen Extra Strength 500 MG tablet TAKE 1 TABLET BY MOUTH EVERY 4 TO 6 HOURS NEEDED FOR FOR FEVER OR FOR PAIN. NO MORE THAN 8 TABLETS IN 24 HOURS. 01/31/20 22 025 Discontinued(Re order (will not trigger notification to Pharmacy)) Aspirin Low Dose 81 MG EC tablet Take 81 mg by mouth in the morning. 04/22/20 22 025 Discontinued( erapy completed) D3 Super Strength 50 MCG (1999) capsule Take 50 mcg by mouth in the morning. 06/05/20 22 025 Discontinued( erapy completed) fluticasone (Flonase Allergy Relief) 50 MCG/ACT nasal spray spray 1 - 2 spray by intranasal route every day in each nostril as needed 06/05/20 025 Discontinued(Du plicate order (will not trigger notification to Pharmacy)) fluticasone (Flonase) 50 MCG/ACT nasal spray USE 1-2 SPRAYS IN EACH NOSTRIL EVERY DAY NEEDED 48 g 1 01/13/20 025 Discontinued(Re order (will not trigger notification to Pharmacy)) amoxicillin-cl avulanate (Augmentin) 875-125 MG tabletIndicati ons:Chronic sinusitis, unspecified location Take 1 tablet by mouth 2 times daily for 7 days. Take w/ food 14 tablet 01/27/20 25 025 Active Problems Problem Noted Date Diagnosed Date Seasonal allergies 01/20/2023 Aneurysm of middle cerebral artery 04/18/2022 Encounters Date Type Department Care Team Description 02/16/2025 10:15 AM EDT Office Visit [address] [address] Deidra Ulrich MD Rib pain (Primary Dx) 02/16/2025 Travel 02/15/[address] [address] Shabnam Wan FNP chartprep 02/15/[address] [address] Shabnam Wan FNP Nurse Triage 01/26/2025 11:30 AM EDT Office Visit [address] [address] Minnie Maynard ANP Elevated blood pressure reading without diagnosis of hypertension (Primary Dx); Nonintractable episodic headache, unspecified headache type; History of cerebral aneurysm; Chronic sinusitis, unspecified location; Gastritis without bleeding, unspecified chronicity, unspecified gastritis type 01/26/2025 Travel 01/24/2025 Telephone [facility] [address], [place] [phone] Shabnam Wan FNP Nurse Triage 01/04/2025 Population Health Risk Score [facility] () Department [address] [place] [phone] Provider, Population Health Generic from Last 3 Months Immunizations Immunization Administration Dates Next Due Pfizer Covid-19 Vaccine 12+ 09/22/2023 Tdap 04/06/2022 Social History Tobacco Use Types Packs/Day Years Used Date Smoking Tobacco: Never Smokeless Tobacco: Never Tobacco Cessation:Counseling Given: Not Answered Depression Answer Date Recorded Patient Health Questionnaire-9 Score 0 02/16/2025 Patient Health Questionnaire-9 Score 0 02/16/2025 Last PHQ-9: Questionnaire Data Not on file 0 02/16/2025 Housing Stability Answer Date Recorded What is your housing situation today? I have chidi barakat 02/16/[address] you li ve. Do you have problems with any of the following? None of the above 02/16/2025 Food Insecurity Answer Date Recorded Within the past 12 months, y ou worried that your food would run out before you got money to buy more: Never True 02/16/2025 Within the past 12 months,th e food you bought just didn't last and you didn't have enough money to get more: Never True Transportation Answer Date Recorded In the past 12 months, has l ack of transportation kept you from medical appts, meetings, work or from getting things needed for daily living? No 02/16/2025 Utilities Answer Date Recorded In the past 12 months, has t he electric, gas, oil or water company threatened to shut off services in your home? No 02/16/2025 Depression Answer Date Recorded Patient Health Questionnaire-2 Score 0 02/16/2025 Internet Access Answer Date Recorded Internet Access Q1 No 02/16/2025 Internet Access Q2 I do not want or need it 02/02 Sex and Gender Information Value Date Recorded Sex Assigned at Male 08/04/2022 10:31 AM EDT Legal Sex Male 10:31 AM EDT Gender Identity Male 08/04/2022 10:31 AM EDT Sexual Orientation Choose not to disclose 2021 10:31 AM EDT Last Filed Vital Signs Vital Sign Reading Time Taken Comments Blood Pressure 155/102 02/16/2025 10:06 AM EDT Pulse 74 02/16/2025 10:06 AM EDT Temperature 37.2 ??C (98.9 ??F) 02/16/2025 10:06 AM E DT Respiratory Rate 20 02/16/2025 10:06 AM EDT Oxygen Saturation 98% 02/16/2025 10:06 AM EDT Inhaled Oxygen Concentration - - Weight 75.8 kg (167 lb 3.2 oz) 02/16/2025 10:06 AM EDT Height 172.7 cm (5' 8 ) 10/21/2022 1:32 PM EST Body Mass Index 25.42 10/21/2022 1:32 PM EST Plan of Treatment Upcoming Encounters Date Type Department Care Team (Late st Contact Info) Description 02/28/2025 11:30 AM EDT Clinical Support [facility] [address] [place] [phone] 03/29/2025 10:15 AM EDT Office Visit [facility] [address] [place] [phone] Shabnam Wan, NICOLLE [address] [place] [address] Health Maintenance Due Date Last Done Comments Family Planning (PISQ) 2010 Hepatitis B Vaccines (1 of 3 - 19+ 3-dose series) 2014 COVID-19 Vaccine (2 - 2023-2 5 season) 2024 09/22/2023 Influenza Vaccine (#1) 2024 Tobacco Screening 01/26/2026 01/26/2025 Alcohol/Substance Use Screening 02/16/2026 02/16/2025 Depression Screening 02/16/2026 02/16/2025, 02/16/2025 SDOH Screening 02/16/2026 02/16/2025 DTaP/Tdap/Td Vaccines (2 - T d or Tdap) 04/06/2032 04/06/2022 Zoster Vaccines (1 of 2) 2045 RSV Patients and Patients Aged 60 years or older (1 - 1-dose 75+ series) 2070 HIV Screening Completed 02/12/2022 Hepatitis C Screening Completed 02/12/2022 HIB Vaccines Aged Out No longer eligi ble based on patient's age to complete this topic HPV Vaccines Aged Out No longer eligi ble based on patient's age to complete this topic Hepatitis A Vaccines Aged Out No long er eligible based on patient's age to complete this topic IPV Vaccines Aged Out No longer eligi ble based on patient's age to complete this topic Meningococcal B Vaccine Aged Out No l onger eligible based on patient's age to complete this topic Meningococcal Vaccine Aged Out No anitra ganesh eligible based on patient's age to complete this topic Pneumococcal Vaccine: Pediatrics (0 to 5 Years) and At-Risk Patients (6 to 49) Years) Aged Out No longer eligible b ased on patient's age to complete this topic RSV under 20 months Aged Out No longe r eligible based on patient's age to complete this topic Rotavirus Vaccines Aged Out No longer eligible based on patient's age to complete this topic Procedures Procedure Name Priority Date/Time Associated Diagnosis Comments ZZZ HISTORICAL HEPATITIS C AB W/REFL TO HCV RNA, QN, PCR Routine 02/12/2022 8:49 AM EDT HIV 1/2 ANTIGEN/ANTIBODY, FOURTH GENERATION W/RFL Routine 02/12/2022 8:49 AM EDT from Last 3 Months or Most Recently Relevant to Health Maintenance Results * HEPATITIS C AB W/REFL TO HCV RNA, QN, PCR (02/12/2022 8:49 AM EDT) HEPATITIS C ANTIBODY NON-REACT ANUPAM NON-REACT ANUPAM [facility] INDEX 0.01 <1.00 [facility] Comment: ?? HCV antibody was non-reactive. There is no laboratory ?? evidence of HCV infection. ?? In most cases, no further action is required. However, if recent HCV exposure is suspected, a test for HCV RNA (test code 18229) is suggested. ?? For additional information please refer to http://Art Circle.Remote Assistant/faq/IUR90i0 (This link is being provided for informational/ educational purposes only.) ?? 02/12/2022 8:49 AM EDT Leatha Kimi HYPERION ADMINISTRATOR HISTORICAL/NON ORDERABLE LABS Final Result Performing Organization Address [facility] de Phone Number [facility] [address] * HIV 1/2 ANTIGEN/ANTIBODY,FOURTH GENERATION W/RFL (02/12/2022 8:49 AM EDT) HIV-1/2 ANTIGEN AND ANTIBODIES, 4TH GENERATION W/ REFLEX NON-REACT ANUPAM NON-REACT ANUPAM [facility] Comment: HIV-1 antigen and HIV-1/HIV-2 antibodies were not detected. There is no laboratory evidence of HIV infection. ?? PLEASE NOTE: This information has been disclosed to you from records whose confidentiality may be protected by state law. ??If your state requires such protection, then the state law prohibits you from making any further disclosure of the information without the specific written consent of the person to whom it pertains, or as otherwise permitted by law. A general authorization for the release of medical or other information is NOT sufficient for this purpose. ? For additional information please refer to http://education.Remote Assistant/faq/SDD440 (This link is being provided for informational/ educational purposes only.) ? The performance of this assay has not been clinically validated in patients less than 2 years old. ?? 02/12/2022 8:49 AM EDT us Leathafortunato Bolden HYPERION ADMINISTRATOR LAB BLOOD ORDERABLES Final Res ult Performing Organization Address [facility] de Phone Number [facility] [address] from Last 3 Months or Most Recently Relevant to Health Maintenance [place] [address] [place] [address] C3 Care Teams Test Facility Engineer Relationship Specialty Start Date End Date Shabnam Wan FNP [address] [place] [id number] PCP - General Family Medicine 06/01/22
--- OUTSIDE RECORDS SUMMARY | 2025-02-16 13:00 | XMS_ITS | Encounter Summary ---
Author Organization [employer] Address [address] [facility] [address] [place] [address] Care Team Providers Care Field Artillery Radar Operator Name Role Phone Shabnam Wan Primary Care Provider [phone] Encounter Details Date Type Department Care Team (Late Contact Info) Description 07/24/2023 Orders Only [facility] [address] [place] [address] Jennie Lindsey LPN Social History Tobacco Use Types Packs/Day Years Used Date Smoking Tobacco: Never Smokeless Tobacco: Never Sex and Gender Information Value Date Recorded Sex Assigned at Male 08/04/2022 10:31 AM EDT Legal Sex Male 10:31 AM EDT Gender Identity Male 08/04/2022 10:31 AM EDT Sexual Orientation Choose not to disclose 2021 10:31 AM EDT documented as of this encounter Plan of Treatment Upcoming Encounters Date Type Department Care Team (Late st Contact Info) Description 02/28/2025 11:30 AM EDT Clinical Support [facility] [address] [place] [phone] 03/29/2025 10:15 AM EDT Office Visit [facility] [address] [place] [phone] Shabnam Wan FNP [address] [place] [address] documented as of this encounter Visit Diagnoses Not on filedocumented in this encounter Care Teams Field Artillery Radar Operator Relationship Specialty Start Date End Date Shabnam Wan FNP [address] [place] [phone] PCP - General Family Medicine 06/01/22 documented as of this encounter
--- OUTSIDE RECORDS SUMMARY | 2025-02-16 13:00 | XMS_ITS | Encounter Summary ---
Author Organization [employer] Address [address] [facility] 7[address] [place] [address] Care Team Providers Care Solder Deposit Operator Name Role Phone Shabnam Wan HOSPITALITY SPECIALIST Primary Care Provider [phone] Reason for Visit * Reason Comments follow up pain Encounter Details Date Type Department Care Team ([facility] st Contact Info) Description 02/16/2025 10:15 AM EDT Office Visit [facility] [address] [place], [place] [phone] Deidra Ulrich MD [address] [place], [place] [phone] Rib pain (Primary Dx) Social History Tobacco Use Types Packs/Day Years Used Date Smoking Tobacco: Never Smokeless Tobacco: Never Depression Answer Date Recorded Patient Health Questionnaire-9 [...] AM EDT documented as of this encounter Last Filed Vital Signs Vital Sign Reading [...] 3.2 oz) 02/16/2025 10:06 AM EDT Height - - Body Mass Index 25.42 10/21/2022 1:32 PM EST documented in this encounter Functional Status * Over the past 2 weeks, how often have you been bothered by any of the following problems? Question Answer Date of Assessment Author Patient Health Questionnaire-2 Score 0 02/02 10:07 AM EDLinh Adhikari MA * Little interest or pleasure in doing things Answer Date of Assessment Author Not at all 02/16/2025 10:07 AM Stella Portillo MA * Feeling down, depressed, or hopeless Answer Date of Assessment Author Not at all 02/16/2025 10:07 AM Stella Portillo MA * Trouble falling or staying asleep, or sleeping too much Answer Date of Assessment Author Not at all 02/16/2025 10:07 AM Stella Portillo MA * Feeling tired or having little energy Answer Date of Assessment Author Not at all 02/16/2025 10:07 AM Stella Portillo MA * Poor appetite or overeating Answer Date of Assessment Author Not at all 02/16/2025 10:07 AM Stella Portillo MA * Feeling bad about yourself - or that you are a failure or have let yourself or your family down Answer Date of Assessment Author Not at all 02/16/2025 10:07 AM Stella Portillo MA * Trouble concentrating on things, such as reading the newspaper or watching television Answer Date of Assessment Author Not at all 02/16/2025 10:07 AM Stella Portillo MA * Moving or speaking so slowly that other people could have noticed? Or the opposite - being so fidgety or restless that you have been moving around a lot more than usual. Answer Date of Assessment Author Not at all 02/16/2025 10:07 AM Stella Portillo MA * Thoughts that you would be better off or hurting yourself in some way Answer Date of Assessment Author Not at all 02/16/2025 10:07 AM Stella Portillo MA * Patient Health Questionnaire-9 Score Answer Date of Assessment Author 0 02/16/2025 10:07 AM Stella Portillo MA * Over the last 2 weeks, how often have you been bothered by any of the following problems? Question Answer Date of Assessment Author Feeling nervous, anxious, or on edge 0 02/02 10:08 AM Linh Portillo MA Not being able to stop or co ntrol worrying 0 02/16/2025 10:08 AM Linh Portillo M A Worrying too much about diff erent things 0 02/16/2025 10:08 AM Linh Portillo M A Trouble relaxing 0 02/16/2025 10:08 AM Linh Portillo MA Being so restless that it is hard to sit still 0 02/16/2025 10:08 AM Linh Portillo M A Becoming easily annoyed or irritable 0 02/02 10:08 AM Linh Portillo MA Feeling afraid as if somethi ng awful might happen 0 02/16/2025 10:08 AM EDT Linh Baird M A MARIAMA-7 Total Score 0 02/16/2025 10:08 AM EDT Linh Baird MA documented as of this encounter Plan of Treatment Upcoming Encounters Date Type Department Care Team (Late st Contact Info) Description 02/28/2025 11:30 AM EDT Clinical Support [address] [address] 03/29/2025 10:15 AM EDT Office Visit [address] [address] Shabnam Wan FNP [address] [place] [address] Scheduled Orders Name Type Priority Associated Diagnoses Orde r Schedule XR Ribs 2 Views Right Imaging Routine Rib pain Expected: 02/16/2025, Expires: 02/16/2026 documented as of this encounter Visit Diagnoses Diagnosis Rib pain- Primary Unspecified chest pain documented in this encounter Additional Health Concerns Assessment Noted Time PHQ-9 Depression Total Score: 0 02/17/20 25 10:07 AM EDT documented as of this encounter Care Teams Solder Deposit Operator Relationship Specialty Start Date End Date Shabnam Wan FNP [address] [place] [id number] PCP - General Family Medicine 06/01/22 documented as of this encounter
--- OUTSIDE RECORDS SUMMARY | 2025-02-16 13:01 | XMS_ITS | Encounter Summary ---
Author Organization [employer] Address [address] [facility] 7[address] [place] [address] Care Team Providers Care Financial Intern Name Role Phone Shabnam Wan Primary Care Provider [phone] Reason for Visit * Reason Onset Date Comments chartprep 02/15/2025 Encounter Details Date Type Department Care Team ([facility] st Contact Info) Description 02/15/2025 Telephone [facility] [address] [place] [address] Shabnam Wan FNP [address] [place], [place] [phone] chartprep Social History Tobacco Use Types Packs/Day Years Used Date Smoking Tobacco: Never Smokeless Tobacco: Never Depression Answer Date Recorded Patient Health Questionnaire-9 Score 0 02/16/2025 Patient Health Questionnaire-9 Score 0 02/16/2025 Last PHQ-9: Questionnaire Data Not on file 0 02/16/2025 Housing Stability Answer Date Recorded What is your housing situation today? I have chidijinny barakat 02/16/[address] you [...] AM EDT documented as of this encounter Miscellaneous Notes * Telephone Encounter - Linh Baird MA - 02/15/2025 11:49 AM EDT ..Chart Prep Labs: not applicable Images: not applicable Vaccines due: Covid Due, Hep B Due, and Flu Due Referrals: Not Applicable Screenings: Not Applicable Overdue care gaps: SDOH, PQ9, GAD7, Disability , and Oral Health documented in this encounter Plan of Treatment Upcoming Encounters Date Type Department Care Team (Late st Contact Info) Description 02/28/2025 11:30 AM EDT Clinical Support [facility] [address] [place] [id number] 03/29/2025 10:15 AM EDT Office Visit [facility] [address] [place] [address] Shabnam Wan FNP [address] [place] [address] documented as of this encounter Visit Diagnoses Not on filedocumented in this encounter Care Teams Financial Intern Relationship Specialty Start Date End Date Shabnam Wan FNP [address] [place] [id number] PCP - General Family Medicine 06/01/22 documented as of this encounter
--- OUTSIDE RECORDS SUMMARY | 2025-02-16 13:01 | XMS_ITS | Encounter Summary ---
Author Organization [employer] Address [address] [facility] 7t [place] [address] Care Team Providers Care Level Vial Sealer Name Role Phone Shabnam Wan Primary Care Provider [phone] Reason for Visit * Reason Onset Date Comments Nurse Triage 02/15/2025 Encounter Details Date Type Department Care Team ([facility] st Contact Info) Description 02/15/2025 Telephone [facility] [address] [place] [address] Shabnam Wan FNP [address] [place], [place] [phone] Nurse Triage Social History Tobacco Use Types Packs/Day Years [...] t he electric, gas, oil or water [employer] threatened to shut off services in your [...] encounter Miscellaneous Notes * Telephone Encounter - Vanessa Garza RN - 02/15/2025 10:34 AM EDT called pt to triage, spoke to pt through [employer]. pt states slipped in the shower, hitting his right ribs. pt states pain in right ribs and requesting pain patches. pt denies significant sob, fever, redness, or other associated symptoms. given appt tomorrow with green team provider at 10:15 for exam. advised home care: rest, fluids, ice x48 hours then heat, OTC pain reliever as needed,pillow to splint, and call back if worsening or new concerns. pt understands and agrees with plan. insurance verified. Protocol Used: Chest Injury (Adult) Protocol-Based Disposition: See in Office or Video Visit Today Video visit offer not recorded Positive Triage Question: * Patient wants to be seen * All higher-acuity triage questions were negative Care Advice Discussed: * Reassurance and Education - Direct Blow (Contusion, Bruise) * Use a Cold Pack for Pain, Swelling, or Bruising * Use Heat on Area After 48 Hours * Breathing Exercises * Reasons To Call Back - Swelling or bruise becomes over 2 inches (5 cm) - Pain not improved after 3 days - Pain or swelling lasts over 7 days - You become worse * Telephone Encounter - Maddy Greco - 02/15/2025 10:03 AM EDT Symptoms: Chest Pain - Adult, Chest Injury Outcome: Talk to a nurse or provider within 15 minutes Reason: Caller denied all higher acuity questions The caller accepted this outcome. documented in this encounter Plan of Treatment Upcoming Encounters Date Type Department Care Team ([facility] st Contact Info) Description 02/28/2025 11:30 AM EDT Clinical Support [address] [address] 03/29/2025 10:15 AM EDT Office Visit [address] [address] Shabnam Wan FNP [address] [place] [address] documented as of this encounter Visit Diagnoses Not on filedocumented in this encounter Care Teams Level Vial Sealer Relationship Specialty Start Date End Date Shabnam Wan FNP [address] [place] [phone] PCP - General Family Medicine 06/01/22 documented as of this encounter
--- OUTSIDE RECORDS SUMMARY | 2025-02-16 13:01 | XMS_ITS | Encounter Summary ---
Author Organization [employer] Address [address] [facility] 7t [place] [address] Care Team Providers Care Profile Shaper Operator Name Role Phone Shabnam Wan Primary Care Provider [phone] Encounter Details Date Type Department Care Team (Latest Contact Info) Description 02/16/2025 Travel Social History Tobacco Use Types Packs/Day Years [...] AM EDT documented as of this encounter Functional Status * Over the past 2 weeks, how often have you been bothered by any of the following problems? Question Answer Date of Assessment Author Patient Health Questionnaire-2 Score 0 02/02 10:07 AM Linh Portillo MA * Little interest or pleasure in [...] awful might happen 0 02/16/2025 10:08 AM Linh Portillo M A MARIAMA-7 Total Score 0 02/16/2025 10:08 AM Linh Portillo MA documented as of this encounter Plan of Treatment Upcoming Encounters Date Type Department Care Team (Late st Contact Info) Description 02/28/2025 11:30 AM EDT Clinical Support [facility] [address] [place] [address] 03/29/2025 10:15 AM EDT Office Visit [facility] [address] [place] [address] Shabnam Wan FNP [address] [place] [address] documented as of this encounter Visit Diagnoses Not on filedocumented in this encounter Additional Health Concerns Assessment Noted Time PHQ-9 Depression Total Score: 0 02/17/20 10:07 AM EDT documented as of this encounter Care Teams Profile Shaper Operator Relationship Specialty Start Date End Date Shabnam Wan FNP [address] [place] [address] PCP - General Family Medicine 06/01/22 documented as of this encounter
== END 2025-02-16 12:03 | disposition home or self-care (01) ==
LOC: HO.HHCX 12:02
PROVIDERS: Visit Provider Family Medicine
DX: R07.81 Pleurodynia (principal)
CPT/HCPCS: 71101

== ENCOUNTER → 2025-02-16 12:03 | Outpatient (BNV) | payer MEDICAID, SELFPAY | PROVIDERS: Visit Provider Radiology Diagnostic Radiology | DX: R07.81 Pleurodynia (principal) | CPT/HCPCS: 71101 ==